=== PATIENT | female | born 1985 | race Hispanic/Latino ===

== ENCOUNTER 2023-11-28 23:17 | Emergency (ER) | payer SELFPAY ==
[~2023-11-28] VITALS: Ht 162.6 cm; Wt 72.6 kg
[2023-11-28 23:24] VITALS: PULSE 64; RESP 18; TEMP 99
[2023-11-29] MEDS ORDERED: CYCLOBENZAPRINE5 MG PO (00:53)
[2023-11-29 01:39] VITALS: BP 103/69; PULSE 64; RESP 18; TEMP 99; O2SAT 96
== END 2023-11-29 01:39 | disposition home or self-care (01) ==
LOC: FSED 23:28
DX: R50.9 Fever, unspecified (principal); R05.9 Cough, unspecified; R51.9 Headache, unspecified; F41.9 Anxiety disorder, unspecified; F32.A Depression, unspecified; F17.210 Nicotine dependence, cigarettes, uncomplicated
CPT/HCPCS: 0223U; 71046; 87400; 87420; 99283

== ENCOUNTER 2023-12-29 17:27 | Emergency (ER) | payer SELFPAY ==
[~2023-12-29] VITALS: Ht 162.6 cm; Wt 75.7 kg
[~2023-12-29 17:27] MED LIST: CYCLOBENZAPRINE5 MG PO
[2023-12-29] MEDS: KETOROLAC TROMETHAMINE 60 MG/2 ML VIAL IM ONE (17:44)
[2023-12-29] MEDS ORDERED: PROZAC20 MG PO (17:51)
[2023-12-29] MEDS ORDERED: SUBOXONE 4 MG-1 EACH (17:51)
[2023-12-29] MEDS: ACETAMINOPHEN 325 MG TAB PO ONE (19:19)
[2023-12-29 21:22] VITALS: PULSE 59; RESP 16; TEMP 98.9; O2SAT 98
== END 2023-12-29 21:22 | disposition home or self-care (01) ==
LOC: FSED 17:32
DX: M54.50 Low back pain, unspecified (principal); F41.9 Anxiety disorder, unspecified; F32.A Depression, unspecified
CPT/HCPCS: 74176; 80048; 81003; 81025; 85025; 96372; 99284; J1885